=== PATIENT | female | born 1995 | race American Indian/Alaskan Native ===

== ENCOUNTER 2017-12-12 21:51 | Inpatient (IN) | payer MEDICAID, OTHER ==
[2017-12-12] MEDS ORDERED: ePHEDrine SULFATE IV PRN (23:14)
[2017-12-12] MEDS ORDERED: XYLOCAINE 2% INFILTRATI ONE (23:14)
[2017-12-12] MEDS ORDERED: MINERAL OIL PO PRN (23:14)
[2017-12-12] MEDS ORDERED: POLYCILLIN/NS 2 GM/100 ML 2 GM/100 ML BAG IV ONE (23:14)
[2017-12-12] MEDS ORDERED: SUBLIMAZE IV PRN (23:14)
[2017-12-12] MEDS ORDERED: BRETHINE SUB-Q PRN (23:14)
[2017-12-12] MEDS ORDERED: BRETHINE IVP PRN (23:14)
[2017-12-12] MEDS ORDERED: STADOL IV PRN (23:14)
[2017-12-12] MEDS ORDERED: LACTATED RINGERS 1,000 ML IV SCH (23:45)
[2017-12-13 00:45] LABS: Hematocrit 34.2 % (30.3-42.9); Mean Corpuscular HGB Conc 32 % (30-34); Mean Corpuscular Hemoglobin 29 pg (28-32); Mean Corpuscular Volume 90 fl (79-97); Platelet Count 206 K/mm3 (140-440); Red Blood Count 3.81 M/mm3 (3.65-5.03); Red Cell Distribution Width 14.4 % (13.2-15.2)
[2017-12-13] MEDS ORDERED: NARCAN 2 MG/2 ML IV PRN (01:56)
--- NOTE | 2017-12-13 01:56 | Anesthesia Consultation ---
Anesthesia Consult and Med Hx Date of service: 12/13/17 - Airway Anesthetic Teeth Evaluation: Good ROM Head & Neck: Adequate Mental/Hyoid Distance: Adequate Mallampati Class: Class IV Intubation Access Assessment: Possibly Difficult - Pulmonary Exam CTA: Yes - Cardiac Exam Cardiac Exam: RRR - Pre-Operative Health Status ASA Pre-Surgery Classification: ASA2 Proposed Anesthetic Plan: Epidural, Spinal - Pulmonary Hx Asthma: No COPD: No Hx Pneumonia: No - Cardiovascular System Hx Hypertension: No Hx Coronary Artery Disease: No Hx Heart Attack/AMI: No Hx Angina: No - Central Nervous System Hx Seizures: No Hx Psychiatric Problems: No - Endocrine Hx Renal Disease: No Hx End Stage Renal Disease: No Hx Hypothyroidism: No Hx Hyperthyroidism: No - Hematic Hx Anemia: Yes Hx Sickle Cell Disease: No - Other Systems Hx Alcohol Use: No
[2017-12-13] MEDS ORDERED: fentaNYL-BUPIV 2 MCG/ML-0.125% 200 MCG/100 ML BAG EPIDURAL SCH (02:00)
[2017-12-13] MEDS: PITOCin/NS 20 UNIT/1000ML DRIP 20 UNITS/1,000 ML BAG IV SCH ×2 (03:15→04:01)
[2017-12-13] MEDS ORDERED: POLYCILLIN/NS 1 GM/50 ML 1 GM/50 ML BAG IV SCH (03:19)
--- NOTE | 2017-12-13 03:32 | History and Physical Report ---
History of Present Illness Date of examination: 12/13/17 Date of admission: 12/12/17 23:20 Chief complaint: I'm having contractions History of present illness: Patient is a 22 year old who presents at 39.2 weeks with EDc 12/18/2017. She received care at [facility]. records are not available for review at this time. Past History Past Medical History: no pertinent history Past Surgical History: no surgical history Family/Genetic History: none Social history: single - Obstetrical History Expected Date of Delivery: 12/18/17 Actual Gestation: 39 Week(s) 2 Day(s) : 3 Para: 2 Number of Living Children: 2 Medications and Allergies Allergies Allergy/AdvReac Type Severity Reaction Status Date / Time No Known Allergies Allergy Verified 07/09/15 12:13 Home Medications Medication Instructions Recorded Confirmed Last Taken Type Ibuprofen [Motrin 600 MG tab] 600 mg PO Q6HR #40 tablet 07/12/15 Unknown Rx Vit-Fe Fumar-FA [ 1 each PO QDAY #30 tablet 07/12/15 Unknown Rx Vitamin] Active Meds: Active Medications Butorphanol Tartrate (Stadol) 2 mg IV Q2H PRN PRN Reason: Pain , Severe (7-10) Last Admin: 12/13/17 00:05 Dose: 2 mg Ephedrine Sulfate (Ephedrine Sulfate) 10 mg IV Q2M PRN PRN Reason: Hypotension Fentanyl (Sublimaze) 100 mcg IV Q2H PRN PRN Reason: Labor Pain Ampicillin Sodium (Polycillin/Ns 1 Gm/50 Ml) 1 gm in 50 mls @ 100 mls/hr IV Q4HR GISSELL PRN Reason: Protocol Lactated Ringer's (Lactated Ringers) 1,000 mls @ 125 mls/hr IV DIRECT GISSELL Last Admin: 12/13/17 01:32 Dose: 125 mls/hr Oxytocin/Sodium Chloride (Pitocin/Ns 20 Unit/1000ml Drip) 20 units in 1,000 mls @ 125 mls/hr IV DIRECT GISSELL Fentanyl/Bupivacaine/Sodium Chlor (Fentanyl-Bupiv 2 Mcg/Ml-0.125%) 200 mcg in 100 mls @ 12 mls/hr EPIDURAL TITR GISSELL PRN Reason: Protocol Last Admin: 12/13/17 02:43 Dose: 12 mls/hr Mineral Oil (Mineral Oil) 30 ml PO QHS PRN PRN Reason: Constipation Naloxone HCl (Narcan 2 Mg/2 Ml) 0.2 mg IV Q5M PRN PRN Reason: Respiratory sedation Terbutaline Sulfate (Brethine) 0.25 mg SUB-Q ONCE PRN PRN Reason: Hyperstimulation/Hypertonicity Terbutaline Sulfate (Brethine) 0.25 mg IVP ONCE PRN PRN Reason: Hyperstimulation/Hypertonicity Review of Systems All systems: negative Genitourinary: leakage of fluid, contractions - Vital Signs Vital signs: Vital Signs Temp Resp 98.6 F 18 12/12/17 22:22 12/12/17 22:22 Temp Pulse Resp BP Pulse Ox 98 F 86 16 134/85 97 12/13/17 00:06 12/13/17 03:29 12/13/17 03:15 12/13/17 03:29 12/13/17 03:04 - Physical Exam Breasts: Cardiovascular: Regular rate, Normal S1, Normal S2 Lungs: Positive: Clear to auscultation, Normal air movement Abdomen: Positive: normal appearance, soft, normal bowel sounds. Negative: distention, tenderness Genitourinary (Female): Positive: normal external genitalia, normal perenium Vulva: both: normal Vagina: Positive: normal moisture. Negative: discharge Cervix: Negative: lesion, discharge Uterus: Positive: normal size, normal contour Adnexa: both: normal Anus/Rectum: Positive: normal perianal skin, heme negative. Negative: rectal mass, hemorrhoids Extremities: Deep Tendon Reflex Grade: Normal +2 - Obstetrical FHR: auscultation normal Cervical Dilatation: 5 Cervical Effacement Percentage: 90 station: -2 Uterine Contraction Pattern: Regular Uterine Tone Measurement Phase: Contraction Uterine Contraction Intensity: Moderate Results Result Diagrams: 12/12/17 23:55 Abnormal lab results 12/12/17 Range/Units 23:55 WBC 11.5 H (4.5-11.0) K/mm3 All other labs normal. Assessment and Plan IUP at 39.2 weeks in active labor. Admit to L&D. Patient may have epidural. Anticipate .
--- NOTE | 2017-12-13 03:36 | Procedure Note ---
OB Delivery Note - Delivery Date of Delivery: 12/13/17 Surgeon: MISTY OSPINA Estimated blood loss: 200cc - Vaginal Delivery presentation: vertex Delivery position: OA Intrapartum events: precipitous labor- <3hr Delivery induction: none Delivery monitor: external FHT, external uterine Route of delivery: Delivery placenta: spontaneous Delivery cord: 3 umbilical vessels Episiotomy: none Delivery laceration: none Anesthesia: epidural Delivery comments: Viable male delivered over intact perineum precipitously. placed on maternal abdomen. Cord clamped and cut. Placenta delivered spontaneously and intact with 3vc. Weight 7 pounds 13 ounces. Apgars 8,9. No lacerations. Excellent hemostasis. Patient tolerated procedure well. - A at 1 minute: 8 at 5 minutes: 9 Infant Gender: Male
[2017-12-13] MEDS ORDERED: DULCOLAX PR PRN (03:37)
[2017-12-13] MEDS ORDERED: NORCO 5/325 PO PRN (03:37)
[2017-12-13] MEDS ORDERED: PHENERGAN PR PRN (03:37)
[2017-12-13] MEDS ORDERED: TUCKS PAD TP PRN (03:37)
[2017-12-13] MEDS ORDERED: MILK OF MAGNESIA PO PRN (03:37)
[2017-12-13] MEDS ORDERED: BENADRYL PO PRN (03:37)
[2017-12-13] MEDS ORDERED: TYLENOL PO PRN (03:37)
[2017-12-13] MEDS ORDERED: ZOFRAN IV PRN (03:37)
[2017-12-13] MEDS ORDERED: PHENERGAN PO PRN (03:37)
[2017-12-13] MEDS ORDERED: LANSINOH TP PRN (03:37)
[2017-12-13] MEDS ORDERED: SODIUM CHLORIDE FLUSH SYRINGE 10 ML IV NR (04:00)
[2017-12-13] MEDS: MOTRIN PO SCH ×3 (05:26→23:36)
[2017-12-13] MEDS: COLACE PO SCH ×2 (10:49→23:36)
[2017-12-13] MEDS: PRENATAL VITAMIN PO SCH (10:49)
[2017-12-13 16:02] LABS: Hematocrit 31.8 % (30.3-42.9); Hemoglobin 10.2 gm/dl (10.1-14.3)
[2017-12-14] MEDS: MOTRIN PO SCH ×4 (06:09→23:23)
[2017-12-14] MEDS: COLACE PO SCH ×2 (09:35→21:25)
[2017-12-14] MEDS: PRENATAL VITAMIN PO SCH (09:36)
--- NOTE | 2017-12-14 19:58 | Progress Note ---
Assessment and Plan PPD 1 s/p . Doing well. As records were not available for review, extermination supervisor has ordered 48 hour hold for baby. Will plan for discharge on tomorrow. Subjective - Subjective Date of service: 12/14/17 Interval history: Patient is a 22 year old who presents at 39.2 weeks with EDc 12/18/2017. She received care at [facility]. records are not available for review at this time. Patient reports: appetite normal, voiding normally, pain well controlled, ambulating normally : doing well Objective - Vital Signs Latest vital signs: Vital Signs Temp Pulse Resp BP BP Pulse Ox 12/14/17 17:16 98.6 F 84 18 120/71 97 12/14/17 08:00 98.5 F 78 18 112/64 99 12/13/17 23:09 98.9 F 80 16 114/71 12/13/17 20:31 98.6 F 72 18 109/76 Intake and Output 12/14/17 12/14/17 12/14/17 06:59 14:59 22:59 Intake Total 440 240 Balance 440 240 Intake: Oral 440 240 Other: Total, Intake Amount 200 240 # Voids Void 1 1 - Exam Breasts: Present: deferred Cardiovascular: Present: Regular rate, Normal S1, Normal S2 Lungs: Present: Clear to auscultation, Normal air movement Abdomen: Present: normal appearance, soft, normal bowel sounds Vulva: both: normal Uterus: Present: normal, firm Extremities: Present: normal
[2017-12-15] MEDS: MOTRIN PO SCH (05:50)
--- NOTE | 2017-12-15 08:30 | Progress Note ---
Assessment and Plan A/P PPD#2 s/p doing well VSS hemoglobin stable d/c home today Subjective - Subjective Date of service: 12/15/17 Principal diagnosis: s/p Patient reports: appetite normal, voiding normally, pain well controlled, flatus , ambulating normally : doing well Objective - Vital Signs Latest vital signs: Vital Signs Temp Pulse Resp BP BP Pulse Ox 12/15/17 00:35 97.8 F 68 20 115/83 97 12/14/17 17:16 98.6 F 84 18 120/71 97 Intake and Output 12/14/17 12/15/17 12/15/17 23:59 07:59 15:59 Intake Total 240 240 Balance 240 240 Intake: Oral 240 240 Other: Total, Intake Amount 240 240 # Voids Void 1 1 - Exam Breasts: Present: normal Cardiovascular: Present: Regular rate, Normal S1 Lungs: Present: Clear to auscultation, Normal air movement Abdomen: Present: normal appearance, soft, normal bowel sounds. Absent: distention, tenderness, guarding Vulva: both: normal Uterus: Present: normal, firm, fundal height below umbilicus. Absent: bogginess , tenderness Extremities: Present: normal Deep Tendon Reflex Grade: Normal +2
--- NOTE | 2017-12-15 08:31 | Discharge Summary ---
Providers - Providers Date of Admission: 12/12/17 23:20 Date of discharge: 12/15/17 Attending physician: BLAIRE NEGRON Primary care physician: BLAIRE NEGRON Hospitalization Reason for admission: IUP at term Delivery: Episiotomy: none Laceration: none Other procedures: none complications: none baby: male Condition at discharge: Good Disposition: DC-01 TO HOME OR SELFCARE Plan - Discharge Medications Prescriptions: Ibuprofen [Motrin] 800 mg PO Q8HR PRN #30 tablet PRN Reason: Pain - Provider Discharge Summary Activity: routine, no sex for 6 weeks Diet: routine Instructions: routine Additional instructions: [] Smoking cessation referral if applicable(refer to patient education folder for contact #) [] Refer to [facility]'s [facility] Booklet Call your doctor immediately for: * Fever > 100.5 * Heavy vaginal bleeding ( >1 pad per hour) * Severe persistent headache * Shortness of breath * Reddened, hot, painful area to leg or breast * Drainage or odor from incision. * Keep incision clean and dry at all times and follow doctor's instructions regarding bathing/showering - Follow up plan Follow up: BLAIRE NEGRON MD [Primary Care Provider] - 01/12/18
[2017-12-15 09:27] VITALS: BP 125/82
== END 2017-12-15 12:35 | disposition home or self-care (01) | DRG 775 ==
LOC: TRG 21:51 → LD 23:20 → OB 12-13 05:03
PROVIDERS: ADMIT Obstetrics & Gynecology; ATTEND Obstetrics & Gynecology
PROC: 10E0XZZ Delivery of Products of Conception, External Approach (ICD-10-PCS; principal; 2017-12-13)
PROC: 3E0R3BZ Introduction of Anesthetic Agent into Spinal Canal, Percutaneous Approach (ICD-10-PCS; 2017-12-13)
PROC: 00HU33Z Insertion of Infusion Device into Spinal Canal, Percutaneous Approach (ICD-10-PCS; 2017-12-13)
DX: O62.3 Precipitate labor (principal); Z3A.39 39 weeks gestation of pregnancy; Z37.0 Single live birth
CPT/HCPCS: 36415; 85014; 85018; 85027; 86592; 86706; 86762; 86850; 86900; 86901; 87806; 99211; A6250; G0463; J0290; J0595; J2590; J7120